=== PATIENT | male | born 1990 | race Caucasian/White ===

== ENCOUNTER 2021-11-07 21:16 | Emergency (ER) | payer BC ==
[~2021-11-07] VITALS: Ht 172.7 cm; Wt 85.0 kg
[2021-11-08] MEDS ORDERED: CYCLOBENZAPRINE 10MG TABLET PO ONE (00:30)
[2021-11-08] MEDS ORDERED: KETOROLAC 30MG/ML VIAL IM ONE (00:30)
[2021-11-08 01:22] VITALS: BP 145/70
== END 2021-11-08 02:15 | disposition left against medical advice (07) ==
LOC: ER 21:16
DX: M54.50 Low back pain, unspecified (principal)
CPT/HCPCS: 96372; 99283; J1885